=== PATIENT | female | born 1960 | race Caucasian/White ===

== ENCOUNTER 2022-05-02 13:24 | Outpatient (CLI) | payer OTHER, SELFPAY ==
--- NOTE | 2022-05-02 13:40 | CRLHL7_ITS ---
For Patients: As a result of the Cures Act, medical imaging exams and procedure reports are released immediately into your electronic medical record. You may view this report before your referring provider. If you have questions, please contact your health care provider. BILATERAL SCREENING MAMMOGRAM WITH COMPUTER-AIDED DETECTION AND TOMOSYNTHESIS TECHNIQUE: CC and MLO views were obtained. These mammographic images have been obtained using full-field digital technique. These mammographic images were interpreted with the benefit of computer-aided detection. Breast Tomosynthesis was used in this interpretation. COMPARISON FILM: 09/22/20, 09/11/19, 08/24/18. FINDINGS: There are scattered areas of fibroglandular density IMPRESSION: There is no radiographic evidence for malignancy. ASSESSMENT: BI-RADS Category 1: Negative RECOMMENDATION: Routine screening mammogram in 1 year. A lay language report of this examination will be provided to the patient. NATE GREEN MD Diagnostic/Nuclear Medicine Radiologist [email or web address] HONEY/bhe be/Dictated by: Nate Green MD @ 05/03/2022 8:20:00 AM (Electronically Signed)
== END 2022-05-02 13:25 | disposition home or self-care (01) ==
LOC: MAMMO 13:26
PROVIDERS: PCP Physician Assistant Medical; Visit Provider Physician Assistant Medical
DX: Z12.31 Encounter for screening mammogram for malignant neoplasm of breast (principal)
CPT/HCPCS: 77063; 77067

== ENCOUNTER 2022-11-25 07:45 | Outpatient (CLI) | payer OTHER, SELFPAY | END 2022-11-25 07:46 | disposition home or self-care (01) | LOC: NFLDREF 13:13 | PROVIDERS: PCP Physician Assistant Medical; Referring Provider Physician Assistant Medical; Visit Provider Physician Assistant Medical | DX: Z00.00 Encounter for general adult medical examination without abnormal findings (principal); Z13.6 Encounter for screening for cardiovascular disorders; Z13.29 Encounter for screening for other suspected endocrine disorder | CPT/HCPCS: 80053; 80061; 84443 ==

== ENCOUNTER 2022-11-29 06:54 | Outpatient (CLI) | payer OTHER, SELFPAY ==
--- NOTE | 2022-11-29 10:20 | W.ANESCHARGE ---
Anesthesia Charges Start Date/Time Anesthesia Start Date: 11/29/22 Anesthesia Start Time: 08:00 Stop Date/Time Anesthesia Stop Date: 11/29/22 Anesthesia Stop Time: 08:40
--- NOTE | 2022-11-29 10:25 | W.ANESCHARGE ---
Anesthesia Charges Start Date/Time Anesthesia Start Date: 11/29/22 Anesthesia Start Time: 08:00 Stop Date/Time Anesthesia Stop Date: 11/29/22 Anesthesia Stop Time: 08:40
== END 2022-11-29 06:55 | disposition home or self-care (01) ==
LOC: OP CLINIC 06:54
PROVIDERS: PCP Physician Assistant Medical; Visit Provider Surgery
DX: Z12.11 Encounter for screening for malignant neoplasm of colon (principal); K63.5 Polyp of colon
CPT/HCPCS: 00811; 45385; 88305; J2704

== ENCOUNTER 2023-09-26 13:28 | Outpatient (CLI) | payer OTHER, SELFPAY ==
--- NOTE | 2023-09-26 13:40 | CRLHL7_ITS ---
For Patients: As a result of the Century Cures Act, medical imaging exams and procedure reports are released immediately into your electronic medical record. You may view this report before your referring provider. If you have questions, please contact your health care provider. BILATERAL SCREENING MAMMOGRAM WITH COMPUTER-AIDED DETECTION AND TOMOSYNTHESIS TECHNIQUE: CC and MLO views were obtained. These mammographic images have been obtained using full-field digital technique. These mammographic images were interpreted with the benefit of computer-aided detection. Breast tomosynthesis was used in this interpretation. COMPARISON FILM: 05/02/22, 09/22/20, 09/11/19. FINDINGS: There are scattered areas of fibroglandular density. IMPRESSION: There is no radiographic evidence for malignancy. ASSESSMENT: BI-RADS Category 1: Negative RECOMMENDATION: Routine screening mammogram in 1 year. A lay language report of this examination will be provided to the patient. KELECHI PAZ M.D. Diagnostic Radiologist [email or web address] Transcribed: 2:[address]/Dictated by: Kelechi Paz MD @ 09/27/2023 12:26:00 PM (Electronically Signed)
== END 2023-09-26 13:29 | disposition home or self-care (01) ==
LOC: MAMMO 13:28
PROVIDERS: PCP Physician Assistant Medical; Visit Provider Physician Assistant Medical
DX: Z12.31 Encounter for screening mammogram for malignant neoplasm of breast (principal)
CPT/HCPCS: 77063; 77067

== ENCOUNTER 2024-01-10 10:58 | Outpatient (CLI) | payer OTHER, SELFPAY ==
[2024-01-12 17:49] LABS: HPV Source Cervical/Vag; HPV, High Risk by TMA Not Detected
== END 2024-01-10 10:59 | disposition home or self-care (01) ==
PROVIDERS: PCP Physician Assistant Medical; Visit Provider Physician Assistant Medical
DX: Z00.00 Encounter for general adult medical examination without abnormal findings (principal); M25.561 Pain in right knee; G89.29 Other chronic pain; L71.9 Rosacea, unspecified
CPT/HCPCS: 87624; 87625; 88141; 88142

== ENCOUNTER 2024-08-13 14:17 | Outpatient (CLI) | payer OTHER, SELFPAY ==
--- NOTE | 2024-08-13 14:45 | CRLHL7_ITS ---
For Patients: As a result of the Century Cures Act, medical imaging exams and procedure reports are released immediately into your electronic medical record. You may view this report before your referring provider. If you have questions, please contact your health care provider. INDICATION: Left leg pain TECHNIQUE: Ultrasound venous duplex lower left extremity. Compression venous exam was performed using marrufo-scale, color Doppler, and spectral Doppler analysis. COMPARISON: None. FINDINGS: Sonographic imaging demonstrates the left common femoral, deep femoral, superficial femoral, popliteal, posterior tibial and greater saphenous and the contralateral right common femoral veins to be fully compressible with normal color Doppler blood flow. IMPRESSION: Normal left lower extremity venous ultrasound, no sign of deep venous thrombosis. Dictated by Basim Mirza MD @ 08/13/2024 3:05:41 PM (Electronically Signed)
== END 2024-08-13 14:18 | disposition home or self-care (01) ==
LOC: US 14:18
PROVIDERS: PCP Physician Assistant Medical; Visit Provider Orthopaedic Surgery
DX: M79.605 Pain in left leg (principal)
CPT/HCPCS: 93971

== ENCOUNTER 2024-11-10 23:32 | Emergency (ER) | payer OTHER, SELFPAY ==
--- OUTSIDE RECORDS SUMMARY | 2024-11-10 23:34 | XMS_ITS | Clinical Summary ---
Author Organization [facility] Address [address] [place] [address] Care Team Providers Care Regulator Operator Name Role Phone GriceldaMaya JUAN F Primary Care Provider [phone] Allergies No known active allergies Medications levonorgestrel- ethinyl estrad, 0.1-20 mg-mcg, (AVIANE) 0.1-20 mg-mcg tablet Take 1 tablet by mouth once daily. 1 Package 0 3 Active metroNIDAZOLE (METROGEL) 1 % gel Apply topically to affected area(s) once daily. 45 g 0 3 Active pimecrolimus (ELIDEL) 1 % cream 1 Tube 0 3 Active aspirin enteric coated 81 mg tablet Take 1 tablet by mouth once daily with a meal. 0 3 Active multivitamin (MVI) tablet Take 1 tablet by mouth once daily. 0 3 Active medication order composer Uses a 25 mg Generic Brand Sleep Aid 0 3 Active Active Problems Problem Noted Date Diagnosed Date Palpitations 08/09/2012 Immunizations Immunization Administration Dates Next Due Hepatitis B (Adult) 10/08/2007,05/07/2007,2007 Family History Medical History Relation Name Comments Good Health Brother 3 Good Health Daughter 1 Good Health Daughter 2 Good Health Father Good Health Mother Good Health Sister 2 Relation Name Status Comments Brother 1 Alive Brother 2 Brother 3 Daughter 1 Daughter 2 Father Alive Mother Alive Sister 1 Alive Sister 2 Social History Tobacco Use Types Packs/Day Years Used Date Smoking Tobacco: Never Smokeless Tobacco: Never Alcohol Use Standard Drinks/Week Comments No 0 (1 standard drink = 0.6 oz pur e alcohol) Comments Unknown Sex and Gender Information Value Date Recorded Sex Assigned at Not on file Legal Sex Female 7:26 AM LANDMAN Gender Identity Not on file Sexual Orientation Not on file Obstetrics History Last Filed Vital Signs Vital Sign Reading Time Taken Comments Blood Pressure 112/80 08/09/2012 10:00 AM CDT Pulse 96 08/09/2012 10:00 AM CDT Temperature - - Respiratory Rate - - Oxygen Saturation 98% 08/09/2012 10: 00 AM CDT Inhaled Oxygen Concentration - - Weight 82.9 kg (182 lb 11.2 oz) 013 10:00 AM CDT Height 162.6 cm (5' 4) 08/09/2012 10:0 0 AM CDT Body Mass Index 31.36 08/09/2012 10:00 AM CDT Plan of Treatment Health Maintenance Due Date Last Done Comments Tetanus booster 1973 Depression screening for age 12+ 1974 HIV for age 15-65 1977 BMI (ht and wt on same day) for age 18+ 1980 Hepatitis C screening for age 18-79 1980 Colonoscopy through age 75 05/22/2007 Lipids for age 45-75 05/22/2007 Mammogram for age 45-75 05/22/2007 Pneumococcal series for age 50+ (1 of 1 - PCV) 2012 Zoster (shingles) series for age 50+ (1 of 2) 2012 Pap test for age 21-65 02/21/2021 02/21/2018, 2017 COVID-19 vaccine series ( - 2023- season) 2024 Influenza Vaccine (#1) 2024 RSV vaccine for adults or pr egnancy (1 - 1-dose 75+ series) 2037 Hepatitis B series for 19+ Completed 10/07, 05/07/2007, 04/04/2007 Procedures Procedure Name Priority Date/Time Associated Diagnosis Comments CRYSTALLOGRAPHY TEACHER THIN PREP PAP SCREEN IMAGED Routine 02/21/2018 9:30 AM LANDMAN from Last 3 Months or Most Recently Relevant to Health Maintenance Results * CRYSTALLOGRAPHY TEACHER THIN PREP PAP SCREEN IMAGED (02/21/2018 9:30 AM LANDMAN) Case Report Gynecologic Cytology Report Case: [id number] Authorizing Provider: Prachi Yu PA-C Collected: 02/21/2018 0930 First Screen: Beka Cheek Received: 02/22/2018 1406 Specimen: CRYSTALLOGRAPHY TEACHER ThinPrep Vial Screening, Cervical/Vaginal 03/08/2018 3:06 PM LANDMAN [facility] INTERPRETATION/ RESULT NEGATIVE FOR INTRAEPITHELIAL LESION OR MALIGNANCY (NIL) (none) 03/08/2018 3:06 PM LANDMAN [facility] at 1506 LANDMAN SPECIMEN ADEQUACY Satisfactory for evaluation Endocervical cells cannot be evaluated due to severe atrophy Scant cellularity 03/08/2018 3:06 PM LANDMAN [facility] HPV REQUEST HPV and PAP 03/08/2018 3:06 PM L[facility]MAN [facility] Date of LMP 07/25/2012 03/08/2018 3:06 PM LANDMAN [facility] Last Pap Date 03/08/2018 3:06 PM LANDMAN [facility] Comment:negative Menstrual Status 03/08/2018 3:06 PM L[facility]MAN [facility] Comment:menopause Automated Review Successful 03/08/2018 3:06 PM L[facility]MAN [facility] Comment:Specimen processed s uccessfully by automated biomedical instrument technician device, ThinPrep Imaging System, [employer] ANCILLARY TESTING CRYSTALLOGRAPHY TEACHER HPV Ordered, Please see separate report 03/08/2018 3:06 PM [facility] Note The pap test is a screening technique, not a diagnostic procedure. It is used primarily to screen for squamous cancers and precursor lesions. Published studies have shown that it is subject to both false negative and false positive results. The pap test should not be used as the sole means to diagnose or exclude pre-malignant and malignant lesions. Cytology is screened and interpreted at [facility] - [address], [place] [address] and [facility] - [address]; [place] [address] and [facility] - [address]; [place] [address] and [facility] [address]; [place] [address] 03/08/2018 3:06 PM LANDMAN [facility] Other (Cervical/Vagina l) 02/21/2018 9:30 AM LANDMAN 02/22/2018 2:06 PM LANDMAN us Prachi Yu PA-C PATHOLOGY/CYTOLOGY Final Resu lt [facility] [address] [place] [address], [place] from Last 3 Months or Most Recently Relevant to Health Maintenance Care Teams Regulator Operator Relationship Specialty Start Date End Date Gricelda June JUAN F Ernandez [address] [place] [address] PCP - General Physician Care Process Manager 05/31/12
--- OUTSIDE RECORDS SUMMARY | 2024-11-10 23:34 | XMS_ITS | Clinical Summary ---
Author Organization [facility] Address [address] [place] [address] Care Team Providers Care Supervisor Burling And Joining Name Role Phone Prachi Yu PA-C Primary Care Provider [phone] Thong Terrell MD Unavailable [phone] Allergies No known active allergies Family History Medical History Relation Comments Hypertension Father Hypertension Mother Relation Status Comments Father Mother Social History Tobacco Use Types Packs/Day Years Used Date Smoking Tobacco: Never Smokeless Tobacco: Never Tobacco Cessation:Counseling Given: Not Answered Alcohol Use Standard Drinks/Week Comments Not Currently 0 (1 standard drink = 0.6 oz pur e alcohol) Adolescent Education Answer Date Record ed Getting School Help Needed Not on file 12/18 Comments No Sex and Gender Information Value Date Recorded Sex Assigned at Not on file Legal Sex Female 3:17 AM EVENT PRODUCER Gender Identity Not on file Sexual Orientation Not on file Last Filed Vital Signs Vital Sign Reading Time Taken Comments Blood Pressure 133/88 08/17/2022 1:57 PM CDT Pulse 80 08/17/2022 1:57 PM CDT Temperature 36.4 C (97.6 F) 06/06/2022 1:36 PM CDT Respiratory Rate 19 06/06/2022 1:36 PM CDT Oxygen Saturation 99% 06/06/2022 6:05 PM CDT Inhaled Oxygen Concentration - - Weight 73.8 kg (162 lb 9.6 oz) 08/17/2022 1:57 P M CDT Height 162.6 cm (5' 4) 08/17/2022 1:57 PM CDT Body Mass Index 27.91 08/17/2022 1:57 PM CDT Plan of Treatment Health Maintenance Due Date Last Done Comments ADVANCE CARE PLANNING 1962 ANNUAL REVIEW OF HM ORDERS 1962 CT COLONOGRAPHY 1962 FIT 1962 FLEX SIG 1962 MAMMO SCREENING 1962 sDNA (Cologuard) 1962 YEARLY PREVENTIVE VISIT 1965 COLONOSCOPY 1972 COLORECTAL CANCER SCREENING 1972 HIV SCREENING 1977 HEPATITIS C SCREENING 1980 LIPID 2002 PNEUMOCOCCAL VACCINE 50+ YEARS (1 of 1 - PCV) 2012 ZOSTER VACCINE (1 of 2) 2012 PAP 02/21/2021 02/21/2018, 02/21/2018 PHQ-2 (once per calendar year) 2024 COVID-19 VACCINE (1 - season) 2024 INFLUENZA VACCINE (#1) 2024 8, 11/28/2014, 11/23/2012, Additional history exists DIABETES SCREENING 06/06/2025 06/06/2022 DTAP/TDAP/TD VACCINE (5 - Td or Tdap) 09/23/2029 09/24/2019, 04/09/2009, 11/28/2006, Additional history exists RSV VACCINE (1 - 1-dose 75+ series) 2037 HPV VACCINE (No Doses Required) Completed MENINGITIS VACCINE Aged Out No longer eligible based on patient's age to complete this topic Procedures Procedure Name Priority Date/Time Associated Diagnosis Comments COMPREHENSIVE METABOLIC PANEL STAT 06/06/2022 3:36 PM CDT from Last 3 Months or Most Recently Relevant to Health Maintenance Results * Comprehensive metabolic panel (06/06/2022 3:36 PM CDT) Sodium 136 136 - 145 mmol/L 06/06/2022 4:05 PM CDT [facility] Potassium 4.2 3.4 - 5.3 mmol/L 06/06/2022 4:05 PM CDT [facility] Chloride 100 98 - 107 mmol/L 06/06/2022 4:05 PM CDT [facility] Carbon Dioxide (CO2) 26 22 - 29 mmol/L 06/06/2022 4:05 PM CDT [facility] Anion Gap 10 7 - 15 mmol/L 06/06/2022 4:05 PM CDT LABORATORY Urea Nitrogen 9.4 8.0 - 23.0 mg/dL 06/06/2022 4:05 PM CDT LABORATORY Creatinine 0.76 0.51 - 0.95 mg/dL 06/06/2022 4:05 PM CDT LABORATORY Calcium 9.3 8.8 - 10.2 mg/dL 06/06/2022 4:05 PM CDT LABORATORY Glucose 88 70 - 99 mg/dL 06/06/2022 4:05 PM CDT LABORATORY Alkaline Phosphatase 94 35 - 104 U/L 06/06/2022 4:05 PM CDT LABORATORY AST 27 10 - 35 U/L 06/06/2022 4:05 PM CDT LABORATORY Comment:Specimen is hemolyze d which can falsely elevate AST. Analysis of a non-hemolyzed specimen may result in a lower value. ALT 22 10 - 35 U/L 06/06/2022 4:05 PM CDT LABORATORY Protein Total 6.9 6.4 - 8.3 g/dL 06/06/2022 4:05 PM CDT LABORATORY Albumin 4.5 3.5 - 5.2 g/dL 06/06/2022 4:05 PM CDT LABORATORY Bilirubin Total 0.2 <=1.2 mg/dL 06/06/2022 4:05 PM CDT LABORATORY GFR Estimate 89 >60 mL/min/1.7 3m2 06/06/2022 4:05 PM CDT LABORATORY Comment:eGFR calculated usin g 2020 CKD-EPI equation. Blood BLOOD SPECIMEN / Unknown Venipuncture / Unknown 06/06/2022 3:36 PM CDT 06/06/2022 3:36 PM CDT us Sara Mayo MD LAB - BLOOD ORDERABLES Fi nal Result LABORATORY [facility] [address] Lab (1st floor, no room number) [place] [address], [place] [phone] from Last 3 Months or Most Recently Relevant to Health Maintenance Insurance CHOICE CHOICE Care Teams Supervisor Burling And Joining Relationship Specialty Start Date End Date Prachi Yu PA-C [facility] [address] [place] [address] PCP - General 06/06/22 Thong Terrell MD [address] [facility] [address] [place] [place] [address] Cardiovascular Disease 07/22/22
[2024-11-10 23:40] VITALS: BP 145/105; PULSE 100; RESP 16; TEMP 36.6; O2SAT 100; BMI 27.5
--- NOTE | 2024-11-11 00:44 | ED.GENADULT ---
HPI - General Adult General Date Seen: 11/11/24 Chief complaint: Arrhythmia/Palpitations Stated complaint: fast heartbeat Time Seen by Provider: 11/11/24 00:42 History of Present Illness HPI narrative: 64-year-old female presenting to the ER today with an elevated heart rate that occurred at home. She reports a past history of SVT and has had several episodes in the past few years, most recently about a year and half ago. Her after for several episodes she did not have a clear diagnosis for palpitations but she had a Holter monitor and had a workup through a premium card cancellation clerk through [facility] and was given a clear diagnosis of SVT. No specific treatment is recommended that time but she does recall her premium card cancellation clerk said that if she has more episodes of SVT with become more frequent or severe they could consider ablation. She has otherwise been healthy and normal lately. No recent illness such as fever, cough, vomiting, diarrhea. No new medications.. At around 10:30 a.m. tonight her home pulse oximeter showed an elevated heart rate of 180. She tried to lay down and rest and heart rate came down to 140. She did feel some achiness and heaviness in her chest with some shortness of breath. Symptoms resolved while in the car on the way to the ER. She felt her heart go back to normal and since then she has been fully complete the back to her usual state of health.. Related Data Home Medications ?Medication ?Instructions ?Recorded ?Confirmed No Known Home Medications 11/10/24 11/10/24 Allergies Allergy/AdvReac Type Severity Reaction Status Date / Time No Known Drug Allergies Allergy Verified 11/07/24 14:54 [facility] Medical History (Updated 11/11/24 @ 01:06 by Edouard Tabares MD) Dizziness ?R42 - Dizziness and giddiness (ICD-10) SVT (supraventricular tachycardia) ?I47.1 - Supraventricular tachycardia (ICD-10) Family History (Updated 11/22/22 @ 12:42 by Karina Yuan ~ PSR) Other High blood pressure Social History (Updated 01/16/24 @ 12:30 by Keturah Nicole ~ CTA) Narrative: Non-smoker What is your current living situation?: I presently have a place to live Problems where you live: no known problems In the past 12 months, utilities in danger of being shut off: no In past 12 months, lack of transportation kept you from medical appts, meetings, work, or getting things needed for daily living: no In the past 12 mos, have been you worried that your food would run out before you had money to buy more?: never true In the past 12 mos, the food you bought just didn't last and you didn't have money to buy more?: never true How often do you have a drink containing alcohol: never AUDIT-C Alcohol total score: 0 Non-prescribed substance use: denies use How often does anyone, including family, friends and others, physically hurt you: never How often does anyone, including family, friends and others, insult or talk down to you: never How often does anyone, including family, friends and others, threaten you with harm: never How often does anyone, including family, friends and others, scream or curse at you: never Exam Narrative: Exam Narrative: Constitutional: Appears well-developed and well-nourished. Alert. Conversant. Non toxic. HENT: Head: Atraumatic. Nose: Nose normal. Mouth/Throat: Oral mucosa is clear and moist. no trismus. Pharynx normal. Tonsils symmetric. No tonsillar enlargement, erythema, or exudate. Eyes: Conjunctivae normal. EOM normal. Pupils equal, round, and reactive to light. No scleral icterus. Neck: Normal range of motion. Neck supple. No tracheal deviation present. No thyromegaly Cardiovascular: Normal rate, regular rhythm. No gallop. No friction rub. No murmur heard. Symmetric radial artery pulses Pulmonary/Chest: Effort normal. No stridor. No respiratory distress. No wheezes. No rales. No rhonchi . No tenderness. Abdominal: Soft. Bowel sounds normal. No distension. No mass. No tenderness. No rebound. No guarding. Musculoskeletal: RUE: Normal range of motion. No tenderness. No deformity LUE: Normal range of motion. No tenderness. No deformity RLE: Normal range of motion. No edema. No tenderness. No deformity LLE: Normal range of motion. No edema. No tenderness. No deformity Neurological: Alert and oriented to person, place, and time. Normal strength. CN II-VII intact. No sensory deficit. GCS eye subscore is 4. GCS verbal subscore is 5. GCS motor subscore is 6. Normal coordination Skin: Skin is warm and dry. No rash noted. No pallor. Normal capillary refill. Psychiatric: Normal mood. Normal affect. Const: Vital Signs, click to edit/add: Vital Signs - 24 hr 11/10/24 23:40 11/11/24 01:16 Temperature 98 F Pulse Rate [Pulse Oximeter] 100 78 Respiratory Rate 16 16 Blood Pressure [Ri ght Upper Arm] 145/105 H 115/79 Pulse Oximetry 100 98 Oxygen Delivery Me thod Room Air Room Air Course Vital Signs Vital signs: Initial Vital Signs Temperature 98 F 11/10/24 23:40 Temperature Source Temporal Artery Scan 11/10/24 23:40 Pulse Rate 100 11/10/24 23:40 Respiratory Rate 16 11/10/24 23:40 Blood Pressure 145/105 H 11/10/24 23:40 Blood Pressure Mean 118 H 11/10/24 23:40 Blood Pressure Position Sitting 11/10/24 23:40 Pulse Oximetry 100 11/10/24 23:40 Oxygen Delivery Method Room Air 11/10/24 23:40 Vital Signs Temperature 98 F 11/10/24 23:40 Pulse Rate 100 11/10/24 23:40 Respiratory Rate 16 11/10/24 23:40 Blood Pressure 145/105 H 11/10/24 23:40 Pulse Oximetry 100 11/10/24 23:40 Oxygen Delivery Method Room Air 11/10/24 23:40 Temperature 98 F 11/10/24 23:40 Pulse Rate 78 11/11/24 01:16 Respiratory Rate 16 11/11/24 01:16 Blood Pressure 115/79 11/11/24 01:16 Pulse Oximetry 98 11/11/24 01:16 Oxygen Delivery Method Room Air 11/11/24 01:16 Medical Decision Making MDM Narrative Medical decision making narrative: This patient presents for evaluation of palpitations, and persistent regular elevated heart rate up to about 180. Patient has a known history of SVT. Her tachycardia resolved while in the car on the way to the ER. She is now asymptomatic. Initial ECG shows normal sinus rhythm and no dysrhythmogenic abnormality such as WPW, prolonged QT, Brugada syndrome, and no ischemia. felting machine operator helper while the patient here in the ER showed no dysrhythmia or ectopy. A broad differential diagnosis was considered including SVT, Atrial fibrillation, ventricular arrhythmia, thyroid disease, acute electrolyte abnormality, drugs/medications, caffeine intake or other stimulants, medication side effect, anemia, heart disease, PE, among others. Based on the patient's history of SVT and symptoms similar to previous episodes tonight, I have high suspicion that this was another episode of SVT. This 1 is the most persistent episode she has had of her life, lasting more than 30 minutes. However his resolved prior to arrival. At this point the patient and I agree that she is safe to discharge home. Will hold off on further workup for now. Would recommend outpatient follow-up with her doctor and/or premium card cancellation clerk. Discussed that she is potentially at risk for more episodes of SVT and that it can be unpredictable. Discussed techniques that she can use at home to try to break SVT such as a Valsalva maneuver. Also discussed precautions for return to the ER and need for follow-up. Discharge Plan Discharge Clinical Impression: SVT (supraventricular tachycardia) Patient Disposition: Home, Self-Care Condition: Stable Instructions: Supraventricular Tachycardia (ED) Additional Instructions: As we discussed, I am very pleased that your heart is gone back into his normal rhythm. Please continue your regular routine. If you have more episodes of racing heart, you can try the technique to bear down and see if that will break the irregular rhythm in your heart. However if your racing heart is persistent for more than 10 minutes at home, or if you are having other symptoms such as bad chest pain, trouble breathing, dizziness, fainting spells, return to the ER to be rechecked. Please follow-up with your regular doctor or premium card cancellation clerk within the next few weeks. Prescriptions: No Action No Known Home Medications Follow Up/Referrals: Prachi Yu PA-C [Primary Care Provider, Family Practice] Stand Alone Forms: Content360 Info Instructions
--- OUTSIDE RECORDS SUMMARY | 2024-11-11 01:10 | XMS_ITS | Clinical Summary ---
Author Organization [facility] Address [address] [place] [address] Care Team Providers Care Supervisor Pipe Joints Name Role Phone Prachi Yu PA-C Primary Care Provider [phone] Thong Terrell MD Unavailable [phone] Allergies No known active allergies Family History [...] on file Legal Sex Female 3:17 AM VOCATIONAL TRAINING DIRECTOR Gender Identity Not on file Sexual Orientation [...] - BLOOD ORDERABLES Fi nal Result LABORATORY [facility] [address] Lab (1st floor, no room number) [place] [address], [place] [phone] from Last 3 Months or Most Recently Relevant to Health Maintenance Insurance CHOICE CHOICE Care Teams Supervisor Pipe Joints Relationship Specialty Start Date End Date Prachi Yu PA-C [facility] [address] [place] [address] PCP - General 06/06/22 Thong Terrell MD [address] [facility] [address] [place] [address] Cardiovascular Disease 07/22/22
--- OUTSIDE RECORDS SUMMARY | 2024-11-11 01:10 | XMS_ITS | Clinical Summary ---
Author Organization [employer] [facility] [employer] [facility] Address [address] [place] [id number] Care Team Providers Care Human Resources Assistant Manager Name Role Phone GriceldaMaya JUAN F Primary Care Provider [phone] Allergies No known active allergies Medications levonorgestrel- [...] on file Legal Sex Female 7:26 AM [employer] Gender Identity Not on file Sexual Orientation [...] Procedure Name Priority Date/Time Associated Diagnosis Comments SKINNING MACHINE FEEDER THIN PREP PAP SCREEN IMAGED Routine 02/21/2018 9:30 AM MOT[employer] from Last 3 Months or Most Recently Relevant to Health Maintenance Results * SKINNING MACHINE FEEDER THIN PREP PAP SCREEN IMAGED (02/21/2018 9:30 AM MOT[employer]) Case Report Gynecologic Cytology Report Case: [id number] Authorizing Provider: Prachi Yu PA-C Collected: 02/21/2018 0930 First Screen: Beka Cheek Received: 02/22/2018 1406 Specimen: SKINNING MACHINE FEEDER ThinPrep Vial Screening, Cervical/Vaginal 03/08/2018 3:06 PM [employer] [facility] INTERPRETATION/ RESULT NEGATIVE FOR INTRAEPITHELIAL LESION OR MALIGNANCY (NIL) (none) 03/08/2018 3:06 PM [employer] [facility] at 1506 MOT[employer]OSS SPECIMEN ADEQUACY Satisfactory for evaluation Endocervical cells cannot be evaluated due to severe atrophy Scant cellularity 03/08/2018 3:06 PM [employer] [facility] HPV REQUEST HPV and PAP 03/08/2018 3:06 PM [employer] [facility] Date of LMP 07/25/2012 03/08/2018 3:06 PM [employer] [facility] Last Pap Date 03/08/2018 3:06 PM [employer] [facility] Comment:negative Menstrual Status 03/08/2018 3:06 PM [employer] [facility] Comment:menopause Automated Review Successful 03/08/2018 3:06 PM [employer] [facility] Comment:Specimen processed s uccessfully by automated powertrain engineer device, ThinPrep Imaging System, [employer] ANCILLARY TESTING SKINNING MACHINE FEEDER HPV Ordered, Please see separate report 03/08/2018 3:06 PM [facility] Note The pap test is [...] lesions. Cytology is screened and interpreted at [facility] - [address], [place] [address] and [facility] - [address]; [place] [address] and [facility] - [address]; [place] [address] and [facility] [address]; [place] [address] 03/08/2018 3:06 PM [employer] [facility] Other (Cervical/Vagina l) 02/21/2018 9:30 AM MOT[employer]OSS 02/22/2018 2:06 PM [employer] us Prachi Yu PA-C PATHOLOGY/CYTOLOGY Final Resu lt [facility] [address] [place] [address], [place] from Last 3 Months or Most Recently Relevant to Health Maintenance Care Teams Human Resources Assistant Manager Relationship Specialty Start Date End Date Gricelda June JUAN F Ernandez [address] [place] [address] PCP - General Physician Anatomic Pathologist 05/31/12
[2024-11-11 01:16] VITALS: BP 115/79; PULSE 78; RESP 16; O2SAT 98
== END 2024-11-11 01:21 | disposition home or self-care (01) ==
LOC: ED 11-11 01:08
PROVIDERS: Emergency Provider Emergency Medicine; PCP Physician Assistant Medical
DX: I47.10 Supraventricular tachycardia, unspecified (principal)
CPT/HCPCS: 99281; 99282; 99283

== ENCOUNTER 2024-11-14 11:17 | Outpatient (CLI) | payer OTHER, SELFPAY ==
--- NOTE | 2024-11-14 11:30 | CRLHL7_ITS ---
For Patients: As a result of the Century Cures Act, medical imaging exams and procedure reports are released immediately into your electronic medical record. You may view this report before your referring provider. If you have questions, please contact your health care provider. INDICATION: BILATERAL SCREENING MAMMOGRAM, ASYMPTOMATIC 64 Y/O FEMALE COMPARISON: 09/26/2023, 05/02/2022, 09/22/2020 TECHNIQUE: Digital mammogram in CC and MLO projections including computer-aided detection (CAD) and tomosynthesis. BREAST COMPOSITION: There are scattered areas of fibroglandular density. FINDINGS: No suspicious findings. ASSESSMENT: BI-RADS 1 Negative RECOMMENDATION: Annual screening mammogram. A lay language report of this examination will be provided to the patient. Dictated by: Kelechi Reza MD @ 11/14/2024 13:20:00 (Electronically Signed)
== END 2024-11-14 11:18 | disposition home or self-care (01) ==
LOC: MAMMO 11:17
PROVIDERS: PCP Physician Assistant Medical; Visit Provider Physician Assistant Medical
DX: Z12.31 Encounter for screening mammogram for malignant neoplasm of breast (principal)
CPT/HCPCS: 77063; 77067

== ENCOUNTER 2025-02-18 09:25 | Outpatient (CLI) | payer OTHER, SELFPAY | END 2025-02-18 09:26 | disposition home or self-care (01) | LOC: NFLDREF 02-23 17:14 | PROVIDERS: PCP Physician Assistant Medical; Referring Provider Physician Assistant Medical; Visit Provider Physician Assistant Medical | DX: Z00.00 Encounter for general adult medical examination without abnormal findings (principal) | CPT/HCPCS: 80053; 80061; 84443 ==